=== PATIENT | female | born 1975 | race Caucasian/White ===

== ENCOUNTER 2024-01-05 08:37 | Emergency (ER) | payer BC, SELFPAY | END 2024-01-05 09:29 | disposition home or self-care (01) | PROVIDERS: Emergency Provider Nurse Practitioner | DX: N39.0 Urinary tract infection, site not specified (principal); B96.20 Unspecified Escherichia coli [E. coli] as the cause of diseases classified elsewhere | CPT/HCPCS: 87077; 87086; 87186; 99213; G0463 ==